=== PATIENT | male | born 1945 | race Two or more races ===

== ENCOUNTER 2021-12-09 18:20 | Inpatient (IN) | payer OTHER, MEDICAID ==
[~2021-12-09] VITALS: Ht 177.8 cm; Wt 99.5 kg
[2021-12-09] MEDS ORDERED: methylPREDNISolone SOD SUCC 125 MG/2 ML VL IV ONE (19:00)
[2021-12-09 19:10] VITALS: BP 102/64
[2021-12-09 22:40] VITALS: BP 109/70
[2021-12-10 01:08] LABS: Hematocrit 43.3 % (41.0-53.0); Hemoglobin 14.5 g/dL (13.5-17.5); Mean Corpuscular Hemoglobin 28.4 pg (28.0-32.0); Mean Corpuscular Hgb Conc. 33.4 g/dL (32.0-36.0); Red Cell Distribution Width 16.4 % (11.8-14.3); White Blood Cell 9.6 10^3/uL (4.4-10.8)
[2021-12-10 01:12] LABS: Basophils % (manual) 0 (0.0-2.0); Blast Cells 0; Eosinophils % (manual) 0 (0-7); Metamyelocytes % 0; Monocytes % (manual) 0 (0-12); Myelocytes % 0; Promyelocytes % 0; Reactive Lymphocytes 0
[2021-12-10 02:00] VITALS: BP 127/73
[2021-12-10 02:06] LABS: Band Neutrophils % (manual) 7; Lymphocytes % (manual) 1 (10.0-50.0)
[2021-12-10] MEDS ORDERED: cefTRIAXone 1GM/50ML D5W 50 ML IV ONE (02:15)
[2021-12-10] MEDS ORDERED: AZITHROMYCIN 500MG/ 250ML 250 ML IV ONE (02:15)
[2021-12-10 06:32] LABS: Calcium 8.1 mg/dL (8.5-10.1); Magnesium 3.2 mg/dL (1.6-2.6); Potassium 4.6 mmol/L (3.5-5.1)
[2021-12-10 06:41] LABS: BUN/Creatinine Ratio 24.8; Bilirubin, Total 0.8 mg/dL (0.2-1.0); CRP High Sensitivity 14.8 mg/dL (< 0.3); Total Protein 6.7 g/dL (6.4-8.2)
[2021-12-10 07:40] VITALS: BP 117/63
[2021-12-10] MEDS ORDERED: REMDESIVIR PER PHARMACY 0 ML IV SCH (09:00)
[2021-12-10] MEDS ORDERED: NITROGLYCERIN 0.4 MG SL TAB SL PRN (09:00)
[2021-12-10] MEDS ORDERED: ALBUTEROL SULF HFA 90MCG INH 200DOSE IN PRN (09:00)
[2021-12-10] MEDS ORDERED: MORPHINE SULFATE INJECTION 2 MG/ML SYRG IV PRN (09:00)
[2021-12-10] MEDS ORDERED: ACETAMINOPHEN 500 MG TAB PO PRN (09:00)
[2021-12-10] MEDS ORDERED: FUROSEMIDE 40 MG/4 ML VIAL IV ONE (09:00)
[2021-12-10 09:06] LABS: Urine WBC None Seen /hpf (0 - 3)
[2021-12-10] MEDS: ZINC SULFATE 220mg CAP or TAB PO SCH (10:00)
[2021-12-10] MEDS: IVERMECTIN 3 MG TAB PO SCH (10:00)
[2021-12-10] MEDS: CHOLECALCIFEROL (VITD3) 2,000 UNIT CAP/TAB PO SCH (10:00)
[2021-12-10] MEDS ORDERED: ENOXAPARIN SOD 40 MG/0.4 ML SYRINGE SC SCH (10:00)
[2021-12-10] MEDS: ASCORBIC ACID 1,000 MG TAB PO SCH (10:00)
[2021-12-10] MEDS: DexAMETHasone SOD PHOS 10MG/1ML VIAL INJ IV SCH (10:06)
[2021-12-10 10:35] VITALS: BP 114/67
[2021-12-10] MEDS: BUDESONIDE (INHALATION) 180 MCG IH IN SCH ×2 (10:52→22:00)
[2021-12-10 11:06] LABS: Urine Bacteria NONE SEEN /hpf (None Seen); Urine Blood 3+ /uL (Negative); Urine Specific Gravity 1.021 (1.001-1.035)
[2021-12-10] MEDS: levoFLOXacin 750MG 150 ML IV SCH (11:43)
[2021-12-10 13:41] VITALS: BP 118/71
[2021-12-10] MEDS: SODIUM CHLOR 0.9% PF (SALINE LOCK) 10ML VIAL/SYR IV SCH ×2 (14:30→22:42)
[2021-12-10] MEDS ORDERED: REMDESIVIR 200 MG in NS 210ml LOADING DOSE ADULT IV ONE (15:00)
[2021-12-10 18:05] VITALS: BP 105/64
[2021-12-10 21:02] LABS: Cholesterol 167 mg/dL (< 200)
[2021-12-10 21:04] LABS: Folate (Folic Acid) 2.34 ng/mL (5.38-24)
[2021-12-10 21:05] LABS: HDL Cholesterol 30 mg/dL (40-59); LDL Cholesterol 106 mg/dL (< 100); Triglycerides 174 mg/dL (< 150)
[2021-12-10 22:20] VITALS: BP 111/60
[2021-12-10] MEDS: ENOXAPARIN SOD 100 MG/1 ML SYRINGE SC SCH (22:57)
[2021-12-11 01:45] VITALS: BP 122/69
[2021-12-11] MEDS: SODIUM CHLOR 0.9% PF (SALINE LOCK) 10ML VIAL/SYR IV SCH ×3 (06:13→22:10)
[2021-12-11 06:15] VITALS: BP 129/67
[2021-12-11 09:17] LABS: Albumin 2.1 g/dL (3.4-5.0); Calcium 8.9 mg/dL (8.5-10.1); Potassium 4.3 mmol/L (3.5-5.1)
[2021-12-11 09:20] LABS: BUN/Creatinine Ratio 37.7
[2021-12-11 09:54] LABS: Bilirubin, Total 0.4 mg/dL (0.2-1.0); Total Protein 6.7 g/dL (6.4-8.2)
[2021-12-11] MEDS: ASCORBIC ACID 1,000 MG TAB PO SCH (10:00)
[2021-12-11] MEDS: FOLIC ACID 1 MG in D5W 5% 50 ML INJ SCH (10:00)
[2021-12-11] MEDS: IVERMECTIN 3 MG TAB PO SCH (10:00)
[2021-12-11] MEDS: ENOXAPARIN SOD 100 MG/1 ML SYRINGE SC SCH ×2 (10:00→22:27)
[2021-12-11] MEDS: DexAMETHasone SOD PHOS 10MG/1ML VIAL INJ IV SCH (10:00)
[2021-12-11] MEDS: ZINC SULFATE 220mg CAP or TAB PO SCH (10:00)
[2021-12-11] MEDS: levoFLOXacin 750MG 150 ML IV SCH (10:00)
[2021-12-11] MEDS: CHOLECALCIFEROL (VITD3) 2,000 UNIT CAP/TAB PO SCH (10:00)
[2021-12-11] MEDS: BUDESONIDE (INHALATION) 180 MCG IH IN SCH ×2 (10:20→22:00)
[2021-12-11] MEDS: REMDESIVIR 100mg 100 MG in SODIUM CHL 0.9% 230 ML IV SCH (15:13)
[2021-12-12] MEDS: SODIUM CHLOR 0.9% PF (SALINE LOCK) 10ML VIAL/SYR IV SCH ×3 (06:04→22:00)
[2021-12-12 08:30] LABS: Chloride 120 mmol/L (98-107); Potassium 4.1 mmol/L (3.5-5.1); Sodium 152 mmol/L (136-145)
[2021-12-12 09:11] LABS: Alanine Aminotransferase 32 U/L (16-61); Albumin 2.1 g/dL (3.4-5.0); Alkaline Phosphatase 72 U/L (45-117); Anion Gap 9 (5-15); Aspartate Aminotransferase 32 U/L (15-37); BUN/Creatinine Ratio 40.4; Bilirubin, Total 0.8 mg/dL (0.2-1.0); Blood Urea Nitrogen 42 mg/dL (7-18); Calcium 8.5 mg/dL (8.5-10.1); Carbon Dioxide 23 mmol/L (21-32); GFR African American 90 mL/min; GFR Non-African American 74 mL/min; Glucose 87 mg/dL (74-106); Total Protein 7.1 g/dL (6.4-8.2)
[2021-12-12] MEDS: FOLIC ACID 1 MG in D5W 5% 50 ML INJ SCH (12:03)
[2021-12-12] MEDS: DexAMETHasone SOD PHOS 10MG/1ML VIAL INJ IV SCH (12:04)
[2021-12-12] MEDS: levoFLOXacin 750MG 150 ML IV SCH (12:04)
[2021-12-12] MEDS: IVERMECTIN 3 MG TAB PO SCH (12:05)
[2021-12-12] MEDS: ZINC SULFATE 220mg CAP or TAB PO SCH (12:05)
[2021-12-12] MEDS: ASCORBIC ACID 1,000 MG TAB PO SCH (12:06)
[2021-12-12] MEDS: ENOXAPARIN SOD 100 MG/1 ML SYRINGE SC SCH ×2 (12:06→22:00)
[2021-12-12] MEDS: CHOLECALCIFEROL (VITD3) 2,000 UNIT CAP/TAB PO SCH (12:06)
[2021-12-12] MEDS: REMDESIVIR 100mg 100 MG in SODIUM CHL 0.9% 230 ML IV SCH (16:17)
[2021-12-12 20:55] VITALS: BP 123/70
[2021-12-12 22:00] VITALS: BP 123/70
[2021-12-13 05:00] VITALS: BP 122/80
[2021-12-13 07:32] LABS: Potassium 4.3 mmol/L (3.5-5.1)
[2021-12-13 07:42] LABS: Albumin 2.2 g/dL (3.4-5.0); BUN/Creatinine Ratio 37.1; Bilirubin, Total 1.1 mg/dL (0.2-1.0); Calcium 8.6 mg/dL (8.5-10.1); Total Protein 7.2 g/dL (6.4-8.2)
[2021-12-13] MEDS: levoFLOXacin 750MG 150 ML IV SCH (08:52)
[2021-12-13] MEDS: ENOXAPARIN SOD 100 MG/1 ML SYRINGE SC SCH ×2 (08:59→21:55)
[2021-12-13 09:00] VITALS: BP 120/74
[2021-12-13] MEDS: IVERMECTIN 3 MG TAB PO SCH (09:00)
[2021-12-13] MEDS: CHOLECALCIFEROL (VITD3) 2,000 UNIT CAP/TAB PO SCH (09:00)
[2021-12-13] MEDS: ASCORBIC ACID 1,000 MG TAB PO SCH (09:00)
[2021-12-13] MEDS: DexAMETHasone SOD PHOS 10MG/1ML VIAL INJ IV SCH (09:00)
[2021-12-13] MEDS: ZINC SULFATE 220mg CAP or TAB PO SCH (09:01)
[2021-12-13] MEDS: FOLIC ACID 1 MG in D5W 5% 50 ML INJ SCH (10:00)
[2021-12-13 13:00] VITALS: BP 104/65
[2021-12-13] MEDS ORDERED: PPN PER PHARMACY 0 ML IV SCH (13:30)
[2021-12-13 13:58] LABS: Magnesium 3.1 mg/dL (1.6-2.6); Phosphorus 3.4 mg/dL (2.5-4.90)
[2021-12-13] MEDS: SODIUM CHLOR 0.9% PF (SALINE LOCK) 10ML VIAL/SYR IV SCH ×2 (14:00→21:55)
[2021-12-13 14:02] LABS: Pre Albumin 18.7 mg/dL (20.0-40.0)
[2021-12-13] MEDS: REMDESIVIR 100mg 100 MG in SODIUM CHL 0.9% 230 ML IV SCH (15:49)
[2021-12-13 16:42] VITALS: BP 107/73
[2021-12-13] MEDS ORDERED: AMINO ACID INFUSION IN D10W 1,000 ML IV NR (20:00)
[2021-12-13 22:00] VITALS: BP 111/84
[2021-12-14] MEDS ORDERED: DEXTROSE (50%) 50ML SYRG IV SCH
[2021-12-14] MEDS: ACCU-CHEK COMFORT CURVE STRIP VI SCH ×5 (00:06→23:56)
[2021-12-14 05:00] VITALS: BP 113/75
[2021-12-14] MEDS: SODIUM CHLOR 0.9% PF (SALINE LOCK) 10ML VIAL/SYR IV SCH ×3 (05:15→21:52)
[2021-12-14] MEDS: InsuLIN REG 1unit/0.01ml Soln (100units/ml) SC SCH ×5 (05:18→23:56)
[2021-12-14 09:00] VITALS: BP 117/84
[2021-12-14] MEDS: FOLIC ACID 1 MG in D5W 5% 50 ML INJ SCH (09:17)
[2021-12-14] MEDS: levoFLOXacin 750MG 150 ML IV SCH (09:18)
[2021-12-14] MEDS: DexAMETHasone SOD PHOS 10MG/1ML VIAL INJ IV SCH (09:18)
[2021-12-14] MEDS: ENOXAPARIN SOD 100 MG/1 ML SYRINGE SC SCH ×2 (09:19→21:53)
[2021-12-14] MEDS: ASCORBIC ACID 1,000 MG TAB PO SCH (09:19)
[2021-12-14] MEDS: CHOLECALCIFEROL (VITD3) 2,000 UNIT CAP/TAB PO SCH (09:19)
[2021-12-14] MEDS: IVERMECTIN 3 MG TAB PO SCH (09:19)
[2021-12-14] MEDS: ZINC SULFATE 220mg CAP or TAB PO SCH (09:20)
[2021-12-14 10:36] LABS: Potassium 4.2 mmol/L (3.5-5.1)
[2021-12-14 10:48] LABS: Albumin 2.4 g/dL (3.4-5.0); Bilirubin, Total 1.2 mg/dL (0.2-1.0); Calcium 8.4 mg/dL (8.5-10.1); Phosphorus 2.9 mg/dL (2.5-4.90); Total Protein 6.5 g/dL (6.4-8.2)
[2021-12-14 11:06] LABS: Magnesium 4.3 mg/dL (1.6-2.6)
[2021-12-14 13:00] VITALS: BP 121/74
[2021-12-14] MEDS: REMDESIVIR 100mg 100 MG in SODIUM CHL 0.9% 230 ML IV SCH (15:21)
[2021-12-14 17:00] VITALS: BP 124/56
[2021-12-14] MEDS ORDERED: PPN PER PHARMACY IV NR ×6 (20:00)
[2021-12-14 22:09] VITALS: BP 119/72
[2021-12-15] MEDS: ACCU-CHEK COMFORT CURVE STRIP VI SCH ×4 (05:26→23:05)
[2021-12-15] MEDS: InsuLIN REG 1unit/0.01ml Soln (100units/ml) SC SCH ×5 (05:26→23:04)
[2021-12-15] MEDS: SODIUM CHLOR 0.9% PF (SALINE LOCK) 10ML VIAL/SYR IV SCH ×3 (05:26→22:00)
[2021-12-15 05:29] VITALS: BP 114/64
[2021-12-15 07:34] LABS: Basophils # (auto) 0 10 ^3/uL (0-0.2); Basophils % (auto) 0.3 % (0.0-2.0); Eosinophils # (auto) 0.1 10 ^3/uL (0-0.8); Eosinophils % (auto) 1.1 % (0.0-7.0); Hematocrit 45.8 % (41.0-53.0); Hemoglobin 14.9 g/dL (13.5-17.5); Lymphocytes # (auto) 0.7 10 ^3/uL (0.4-5.4); Lymphocytes % (auto) 7.8 % (10.0-50.0); Mean Corpuscular Hemoglobin 27.8 pg (28.0-32.0); Mean Corpuscular Hgb Conc. 32.4 g/dL (32.0-36.0); Mean Corpuscular Volume 85.7 fL (80.0-100.0); Monocytes # (auto) 0.3 10 ^3/uL (0-1.3); Monocytes % (auto) 3.3 % (0.0-12.0); Neutrophils # (auto) 8.3 10 ^3/uL (1.6-8.6); Neutrophils % (auto) 87.5 % (37.0-80.0); Nucleated Red Blood Cells % 0.2 %; Red Blood Cells 5.34 10^6/uL (4.5-5.90); Red Cell Distribution Width 16.3 % (11.8-14.3); White Blood Cell 9.4 10^3/uL (4.4-10.8)
[2021-12-15 07:50] LABS: INR 1.27 (0.9-1.15); Partial Thromboplastin Time 29.7 sec (23.6-33.0)
[2021-12-15] MEDS: DexAMETHasone SOD PHOS 10MG/1ML VIAL INJ IV SCH (09:40)
[2021-12-15] MEDS: levoFLOXacin 750MG 150 ML IV SCH (09:47)
[2021-12-15] MEDS: CHOLECALCIFEROL (VITD3) 2,000 UNIT CAP/TAB PO SCH (10:00)
[2021-12-15] MEDS: ZINC SULFATE 220mg CAP or TAB PO SCH (10:00)
[2021-12-15] MEDS: ASCORBIC ACID 1,000 MG TAB PO SCH (10:00)
[2021-12-15] MEDS: ENOXAPARIN SOD 100 MG/1 ML SYRINGE SC SCH ×2 (12:07→23:04)
[2021-12-15 12:46] LABS: Albumin 2.3 g/dL (3.4-5.0); Calcium 8.6 mg/dL (8.5-10.1); Potassium 4.1 mmol/L (3.5-5.1)
[2021-12-15 13:00] VITALS: BP 132/79
[2021-12-15 13:29] LABS: BUN/Creatinine Ratio 38.5; CRP High Sensitivity 5.45 mg/dL (< 0.3); Phosphorus 2.9 mg/dL (2.5-4.90); Total Protein 6.3 g/dL (6.4-8.2)
[2021-12-15] MEDS ORDERED: HALOPERIDOL LACTATE 5 MG/ML INJ VIAL IM PRN (16:00)
[2021-12-15 16:50] VITALS: BP 139/81
[2021-12-15] MEDS: FOLIC ACID 1 MG in D5W 5% 50 ML INJ SCH (16:55)
[2021-12-15] MEDS: D5W 5% 1,000 ML IV SCH (18:28)
[2021-12-15] MEDS ORDERED: TPN PER PHARMACY IV NR ×5 (20:00)
[2021-12-15 22:00] VITALS: BP 100/69
[2021-12-16 05:00] VITALS: BP 104/68
[2021-12-16] MEDS: InsuLIN REG 1unit/0.01ml Soln (100units/ml) SC SCH ×4 (05:32→23:19)
[2021-12-16] MEDS: SODIUM CHLOR 0.9% PF (SALINE LOCK) 10ML VIAL/SYR IV SCH ×3 (05:32→21:48)
[2021-12-16] MEDS: ACCU-CHEK COMFORT CURVE STRIP VI SCH ×4 (05:32→23:19)
[2021-12-16] MEDS: D5W 5% 1,000 ML IV SCH ×2 (06:24→19:39)
[2021-12-16] MEDS: levoFLOXacin 750MG 150 ML IV SCH (08:00)
[2021-12-16] MEDS: DexAMETHasone SOD PHOS 10MG/1ML VIAL INJ IV SCH (08:00)
[2021-12-16] MEDS: ENOXAPARIN SOD 100 MG/1 ML SYRINGE SC SCH ×2 (08:00→21:48)
[2021-12-16 08:04] LABS: Basophils # (auto) 0 10 ^3/uL (0-0.2); Basophils % (auto) 0.2 % (0.0-2.0); Eosinophils # (auto) 0.1 10 ^3/uL (0-0.8); Eosinophils % (auto) 1.3 % (0.0-7.0); Hematocrit 43.5 % (41.0-53.0); Hemoglobin 14.3 g/dL (13.5-17.5); Lymphocytes # (auto) 0.9 10 ^3/uL (0.4-5.4); Lymphocytes % (auto) 8.9 % (10.0-50.0); Mean Corpuscular Hemoglobin 28.1 pg (28.0-32.0); Mean Corpuscular Hgb Conc. 32.8 g/dL (32.0-36.0); Mean Corpuscular Volume 85.7 fL (80.0-100.0); Monocytes # (auto) 0.3 10 ^3/uL (0-1.3); Monocytes % (auto) 3.3 % (0.0-12.0); Neutrophils # (auto) 8.8 10 ^3/uL (1.6-8.6); Neutrophils % (auto) 86.3 % (37.0-80.0); Nucleated Red Blood Cells % 0.1 %; Potassium 3.8 mmol/L (3.5-5.1); Red Blood Cells 5.07 10^6/uL (4.5-5.90); Red Cell Distribution Width 15.8 % (11.8-14.3); White Blood Cell 10.2 10^3/uL (4.4-10.8)
[2021-12-16] MEDS: FOLIC ACID 1 MG in D5W 5% 50 ML INJ SCH (08:05)
[2021-12-16] MEDS: ZINC SULFATE 220mg CAP or TAB PO SCH (08:06)
[2021-12-16] MEDS: CHOLECALCIFEROL (VITD3) 2,000 UNIT CAP/TAB PO SCH (08:06)
[2021-12-16] MEDS: ASCORBIC ACID 1,000 MG TAB PO SCH (08:06)
[2021-12-16 08:16] LABS: Albumin 2.3 g/dL (3.4-5.0); BUN/Creatinine Ratio 44.1; Bilirubin, Total 1.1 mg/dL (0.2-1.0); Calcium 8.1 mg/dL (8.5-10.1); Phosphorus 2.8 mg/dL (2.5-4.90)
[2021-12-16 08:28] LABS: INR 1.32 (0.9-1.15)
[2021-12-16 08:40] VITALS: BP 119/75
[2021-12-16 17:00] VITALS: BP 129/87
[2021-12-16] MEDS ORDERED: PPN PER PHARMACY IV NR ×8 (20:00)
[2021-12-16 22:00] VITALS: BP 110/73
[2021-12-17 05:00] VITALS: BP 121/85
[2021-12-17] MEDS: SODIUM CHLOR 0.9% PF (SALINE LOCK) 10ML VIAL/SYR IV SCH ×3 (05:29→21:20)
[2021-12-17] MEDS: InsuLIN REG 1unit/0.01ml Soln (100units/ml) SC SCH ×4 (05:29→23:01)
[2021-12-17] MEDS: ACCU-CHEK COMFORT CURVE STRIP VI SCH ×4 (05:29→23:05)
[2021-12-17 06:48] LABS: Albumin 2.1 g/dL (3.4-5.0); Calcium 7.9 mg/dL (8.5-10.1); Magnesium 3.4 mg/dL (1.6-2.6); Potassium 3.7 mmol/L (3.5-5.1)
[2021-12-17 06:52] LABS: BUN/Creatinine Ratio 47.5; Bilirubin, Total 1.2 mg/dL (0.2-1.0); Phosphorus 2.9 mg/dL (2.5-4.90); Total Protein 5.5 g/dL (6.4-8.2)
[2021-12-17 08:39] VITALS: BP 102/59
[2021-12-17] MEDS: ASCORBIC ACID 1,000 MG TAB PO SCH (10:00)
[2021-12-17] MEDS: CHOLECALCIFEROL (VITD3) 2,000 UNIT CAP/TAB PO SCH (10:00)
[2021-12-17] MEDS: ZINC SULFATE 220mg CAP or TAB PO SCH (10:00)
[2021-12-17] MEDS: FOLIC ACID 1 MG in D5W 5% 50 ML INJ SCH (10:11)
[2021-12-17] MEDS: levoFLOXacin 750MG 150 ML IV SCH (10:11)
[2021-12-17] MEDS: DexAMETHasone SOD PHOS 10MG/1ML VIAL INJ IV SCH (10:11)
[2021-12-17] MEDS: ENOXAPARIN SOD 100 MG/1 ML SYRINGE SC SCH ×2 (10:11→21:19)
[2021-12-17 12:40] VITALS: BP 104/46
[2021-12-17] MEDS: D5W 5% 1,000 ML IV SCH ×2 (16:30→23:06)
[2021-12-17 16:58] VITALS: BP 92/52
[2021-12-17] MEDS ORDERED: PPN PER PHARMACY IV NR ×7 (20:00)
[2021-12-17 21:06] VITALS: BP 113/72
[2021-12-18 04:23] VITALS: BP 106/62
[2021-12-18] MEDS: SODIUM CHLOR 0.9% PF (SALINE LOCK) 10ML VIAL/SYR IV SCH ×3 (05:19→22:21)
[2021-12-18] MEDS: ACCU-CHEK COMFORT CURVE STRIP VI SCH ×3 (05:20→18:35)
[2021-12-18] MEDS: InsuLIN REG 1unit/0.01ml Soln (100units/ml) SC SCH ×3 (05:20→18:46)
[2021-12-18 09:00] VITALS: BP 102/59
[2021-12-18] MEDS: ASCORBIC ACID 1,000 MG TAB PO SCH (10:00)
[2021-12-18] MEDS: CHOLECALCIFEROL (VITD3) 2,000 UNIT CAP/TAB PO SCH (10:00)
[2021-12-18] MEDS: ZINC SULFATE 220mg CAP or TAB PO SCH (10:00)
[2021-12-18 11:29] LABS: Albumin 1.9 g/dL (3.4-5.0); Calcium 8.3 mg/dL (8.5-10.1); Magnesium 2.7 mg/dL (1.6-2.6); Potassium 4.2 mmol/L (3.5-5.1)
[2021-12-18] MEDS: FOLIC ACID 1 MG in D5W 5% 50 ML INJ SCH (11:30)
[2021-12-18] MEDS: DexAMETHasone SOD PHOS 10MG/1ML VIAL INJ IV SCH (11:30)
[2021-12-18] MEDS: ENOXAPARIN SOD 100 MG/1 ML SYRINGE SC SCH ×2 (11:31→22:20)
[2021-12-18] MEDS: levoFLOXacin 750MG 150 ML IV SCH (11:31)
[2021-12-18 11:46] LABS: Bilirubin, Total 1.2 mg/dL (0.2-1.0); Phosphorus 2.2 mg/dL (2.5-4.90)
[2021-12-18] MEDS: D5W 5% 1,000 ML IV SCH (11:55)
[2021-12-18 13:00] VITALS: BP 105/52
[2021-12-18 17:00] VITALS: BP 103/63
[2021-12-18] MEDS ORDERED: PPN PER PHARMACY IV NR ×6 (20:00)
[2021-12-18 21:36] VITALS: BP 90/70
[2021-12-19] MEDS: ACCU-CHEK COMFORT CURVE STRIP VI SCH ×4 (00:09→17:31)
[2021-12-19] MEDS: D5W 5% 1,000 ML IV SCH ×2 (01:15→14:10)
[2021-12-19 04:43] VITALS: BP 97/77
[2021-12-19] MEDS: InsuLIN REG 1unit/0.01ml Soln (100units/ml) SC SCH ×4 (06:00→18:00)
[2021-12-19] MEDS: SODIUM CHLOR 0.9% PF (SALINE LOCK) 10ML VIAL/SYR IV SCH ×3 (06:18→21:50)
[2021-12-19 07:54] LABS: Potassium 3.6 mmol/L (3.5-5.1)
[2021-12-19 08:01] LABS: BUN/Creatinine Ratio 47.9; Bilirubin, Total 0.8 mg/dL (0.2-1.0); Magnesium 3.1 mg/dL (1.6-2.6); Phosphorus 1.8 mg/dL (2.5-4.90); Total Protein 5.7 g/dL (6.4-8.2)
[2021-12-19 08:03] LABS: Pre Albumin 20.4 mg/dL (20.0-40.0)
[2021-12-19 08:30] VITALS: BP 107/71
[2021-12-19] MEDS ORDERED: POTASSIUM PHOSPHATE 26.4 MEQ in SODIUM CHL 0.9% 100 ML IV ONE (09:00)
[2021-12-19] MEDS: FOLIC ACID 1 MG in D5W 5% 50 ML INJ SCH (10:49)
[2021-12-19] MEDS: DexAMETHasone SOD PHOS 10MG/1ML VIAL INJ IV SCH (10:50)
[2021-12-19] MEDS: levoFLOXacin 750MG 150 ML IV SCH (10:51)
[2021-12-19] MEDS: ASCORBIC ACID 1,000 MG TAB PO SCH (10:51)
[2021-12-19] MEDS: ZINC SULFATE 220mg CAP or TAB PO SCH (10:51)
[2021-12-19] MEDS: ENOXAPARIN SOD 100 MG/1 ML SYRINGE SC SCH ×2 (10:52→21:50)
[2021-12-19] MEDS: CHOLECALCIFEROL (VITD3) 2,000 UNIT CAP/TAB PO SCH (10:52)
[2021-12-19 13:10] VITALS: BP 95/57
[2021-12-19 17:16] VITALS: BP 82/60
[2021-12-19 17:56] VITALS: BP 105/63
[2021-12-19] MEDS ORDERED: PPN PER PHARMACY IV NR ×5 (20:00)
[2021-12-19 22:25] VITALS: BP 90/60
[2021-12-20] MEDS: ACCU-CHEK COMFORT CURVE STRIP VI SCH ×4 (00:54→17:57)
[2021-12-20 04:42] VITALS: BP 88/59
[2021-12-20] MEDS: SODIUM CHLOR 0.9% PF (SALINE LOCK) 10ML VIAL/SYR IV SCH ×3 (05:06→22:15)
[2021-12-20] MEDS: D5W 5% 1,000 ML IV SCH ×2 (05:06→09:30)
[2021-12-20] MEDS: InsuLIN REG 1unit/0.01ml Soln (100units/ml) SC SCH ×4 (06:00→17:57)
[2021-12-20 06:34] LABS: Albumin 1.8 g/dL (3.4-5.0); Calcium 7.7 mg/dL (8.5-10.1); Magnesium 2.8 mg/dL (1.6-2.6); Potassium 4.3 mmol/L (3.5-5.1)
[2021-12-20 06:38] LABS: BUN/Creatinine Ratio 45.3; Bilirubin, Total 0.5 mg/dL (0.2-1.0); Phosphorus 2.8 mg/dL (2.5-4.90); Total Protein 5.3 g/dL (6.4-8.2)
[2021-12-20 09:00] VITALS: BP 119/66
[2021-12-20] MEDS: levoFLOXacin 750MG 150 ML IV SCH (09:22)
[2021-12-20] MEDS: DexAMETHasone SOD PHOS 10MG/1ML VIAL INJ IV SCH (09:22)
[2021-12-20] MEDS: CHOLECALCIFEROL (VITD3) 2,000 UNIT CAP/TAB PO SCH (09:23)
[2021-12-20] MEDS: ZINC SULFATE 220mg CAP or TAB PO SCH (09:23)
[2021-12-20] MEDS: ASCORBIC ACID 1,000 MG TAB PO SCH (09:23)
[2021-12-20] MEDS: ENOXAPARIN SOD 100 MG/1 ML SYRINGE SC SCH ×2 (11:00→22:15)
[2021-12-20] MEDS: FOLIC ACID 1 MG in D5W 5% 50 ML INJ SCH (11:00)
[2021-12-20 13:00] VITALS: BP 124/63
[2021-12-20 17:00] VITALS: BP 107/67
[2021-12-20] MEDS ORDERED: PPN PER PHARMACY IV NR ×7 (20:00)
[2021-12-20 22:00] VITALS: BP 115/66
[2021-12-21] MEDS: ACCU-CHEK COMFORT CURVE STRIP VI SCH ×4 (00:57→18:44)
[2021-12-21 05:00] VITALS: BP 114/56
[2021-12-21] MEDS: SODIUM CHLOR 0.9% PF (SALINE LOCK) 10ML VIAL/SYR IV SCH ×3 (05:54→21:08)
[2021-12-21] MEDS: InsuLIN REG 1unit/0.01ml Soln (100units/ml) SC SCH ×4 (05:54→18:00)
[2021-12-21 05:55] LABS: Potassium 4.2 mmol/L (3.5-5.1)
[2021-12-21] MEDS: D5W 5% 1,000 ML IV SCH ×2 (06:01→21:10)
[2021-12-21 06:04] LABS: Albumin 1.8 g/dL (3.4-5.0); BUN/Creatinine Ratio 37.8; Bilirubin, Total 0.6 mg/dL (0.2-1.0); Calcium 7.9 mg/dL (8.5-10.1); Magnesium 3.2 mg/dL (1.6-2.6); Phosphorus 2.5 mg/dL (2.5-4.90); Total Protein 5.5 g/dL (6.4-8.2)
[2021-12-21 09:00] VITALS: BP 120/68
[2021-12-21] MEDS: FOLIC ACID 1 MG in D5W 5% 50 ML INJ SCH (09:00)
[2021-12-21] MEDS: DexAMETHasone SOD PHOS 10MG/1ML VIAL INJ IV SCH (09:01)
[2021-12-21] MEDS: ASCORBIC ACID 1,000 MG TAB PO SCH (09:01)
[2021-12-21] MEDS: ZINC SULFATE 220mg CAP or TAB PO SCH (09:01)
[2021-12-21] MEDS: CHOLECALCIFEROL (VITD3) 2,000 UNIT CAP/TAB PO SCH (09:02)
[2021-12-21] MEDS: ENOXAPARIN SOD 100 MG/1 ML SYRINGE SC SCH ×2 (10:00→21:09)
[2021-12-21] MEDS: levoFLOXacin 750MG 150 ML IV SCH (12:35)
[2021-12-21 13:00] VITALS: BP 105/56
[2021-12-21 13:53] LABS: Basophils # (auto) 0.2 10 ^3/uL (0-0.2); Eosinophils # (auto) 0.1 10 ^3/uL (0-0.8); Hematocrit 32.8 % (41.0-53.0); Hemoglobin 10.7 g/dL (13.5-17.5); Lymphocytes # (auto) 0.8 10 ^3/uL (0.4-5.4); Lymphocytes % (auto) 9.4 % (10.0-50.0); Mean Corpuscular Hemoglobin 28.3 pg (28.0-32.0); Mean Corpuscular Hgb Conc. 32.6 g/dL (32.0-36.0); Mean Corpuscular Volume 86.9 fL (80.0-100.0); Monocytes # (auto) 0.5 10 ^3/uL (0-1.3); Monocytes % (auto) 5.4 % (0.0-12.0); Neutrophils # (auto) 7.1 10 ^3/uL (1.6-8.6); Neutrophils % (auto) 82.2 % (37.0-80.0); Nucleated Red Blood Cells % 0.2 %; Red Blood Cells 3.78 10^6/uL (4.5-5.90); Red Cell Distribution Width 15.8 % (11.8-14.3); White Blood Cell 8.7 10^3/uL (4.4-10.8)
[2021-12-21 17:00] VITALS: BP 106/66
[2021-12-21] MEDS ORDERED: POTASSIUM PHOSPHATE 44 MEQ in D5W 5% 250 ML IV ONE (18:00)
[2021-12-21] MEDS ORDERED: PPN PER PHARMACY IV NR ×6 (20:00)
[2021-12-21 22:00] VITALS: BP 124/69
[2021-12-22] MEDS: ACCU-CHEK COMFORT CURVE STRIP VI SCH ×3 (00:55→17:46)
[2021-12-22 05:00] VITALS: BP 130/63
[2021-12-22] MEDS: InsuLIN REG 1unit/0.01ml Soln (100units/ml) SC SCH ×3 (06:00→17:47)
[2021-12-22] MEDS: SODIUM CHLOR 0.9% PF (SALINE LOCK) 10ML VIAL/SYR IV SCH ×3 (06:39→22:12)
[2021-12-22] MEDS: D5W 5% 1,000 ML IV SCH (08:18)
[2021-12-22 09:00] VITALS: BP 121/66
[2021-12-22] MEDS: levoFLOXacin 750MG 150 ML IV SCH (10:45)
[2021-12-22] MEDS: DexAMETHasone SOD PHOS 10MG/1ML VIAL INJ IV SCH (10:45)
[2021-12-22] MEDS: ZINC SULFATE 220mg CAP or TAB PO SCH (10:45)
[2021-12-22] MEDS: ASCORBIC ACID 1,000 MG TAB PO SCH (10:46)
[2021-12-22] MEDS: CHOLECALCIFEROL (VITD3) 2,000 UNIT CAP/TAB PO SCH (10:46)
[2021-12-22 13:00] VITALS: BP 105/69
[2021-12-22 13:49] LABS: Albumin 1.9 g/dL (3.4-5.0); Calcium 7.8 mg/dL (8.5-10.1); Potassium 4.2 mmol/L (3.5-5.1)
[2021-12-22 13:52] LABS: BUN/Creatinine Ratio 40.8; Bilirubin, Total 0.5 mg/dL (0.2-1.0); Phosphorus 2.4 mg/dL (2.5-4.90); Total Protein 5.7 g/dL (6.4-8.2)
[2021-12-22] MEDS: FOLIC ACID 1 MG in D5W 5% 50 ML INJ SCH (15:10)
[2021-12-22 17:00] VITALS: BP 98/66
[2021-12-22] MEDS ORDERED: PPN PER PHARMACY IV NR ×6 (20:00)
[2021-12-22 22:00] VITALS: BP 111/50
[2021-12-23] MEDS: ACCU-CHEK COMFORT CURVE STRIP VI SCH ×5 (00:53→23:56)
[2021-12-23] MEDS: D5W 5% 1,000 ML IV SCH ×2 (00:54→11:55)
[2021-12-23 05:00] VITALS: BP 107/63
[2021-12-23] MEDS: SODIUM CHLOR 0.9% PF (SALINE LOCK) 10ML VIAL/SYR IV SCH ×3 (05:01→22:58)
[2021-12-23] MEDS: InsuLIN REG 1unit/0.01ml Soln (100units/ml) SC SCH ×5 (06:00→23:57)
[2021-12-23 09:00] VITALS: BP 105/63
[2021-12-23] MEDS: FOLIC ACID 1 MG in D5W 5% 50 ML INJ SCH (10:00)
[2021-12-23] MEDS: levoFLOXacin 750MG 150 ML IV SCH (10:12)
[2021-12-23] MEDS: ASCORBIC ACID 1,000 MG TAB PO SCH (10:12)
[2021-12-23] MEDS: DexAMETHasone SOD PHOS 10MG/1ML VIAL INJ IV SCH (10:12)
[2021-12-23] MEDS: CHOLECALCIFEROL (VITD3) 2,000 UNIT CAP/TAB PO SCH (10:12)
[2021-12-23] MEDS: ZINC SULFATE 220mg CAP or TAB PO SCH (10:12)
[2021-12-23 12:07] LABS: Albumin 1.9 g/dL (3.4-5.0); Calcium 8.2 mg/dL (8.5-10.1); Magnesium 3.3 mg/dL (1.6-2.6); Potassium 3.9 mmol/L (3.5-5.1)
[2021-12-23 12:19] LABS: BUN/Creatinine Ratio 43.5; Bilirubin, Total 0.7 mg/dL (0.2-1.0); Phosphorus 2.6 mg/dL (2.5-4.90); Total Protein 5.5 g/dL (6.4-8.2)
[2021-12-23 12:20] LABS: INR 1.06 (0.9-1.15)
[2021-12-23 13:00] VITALS: BP 86/57
[2021-12-23 17:00] VITALS: BP 94/55
[2021-12-23] MEDS ORDERED: PPN PER PHARMACY IV NR ×8 (20:00)
[2021-12-23 20:05] LABS: Basophils # (auto) 0 10 ^3/uL (0-0.2); Basophils % (auto) 0.1 % (0.0-2.0); Eosinophils # (auto) 0 10 ^3/uL (0-0.8); Hematocrit 30.7 % (41.0-53.0); Hemoglobin 10.4 g/dL (13.5-17.5); Lymphocytes # (auto) 0.4 10 ^3/uL (0.4-5.4); Lymphocytes % (auto) 5.8 % (10.0-50.0); Mean Corpuscular Hemoglobin 28.7 pg (28.0-32.0); Mean Corpuscular Hgb Conc. 34.1 g/dL (32.0-36.0); Mean Corpuscular Volume 84.3 fL (80.0-100.0); Monocytes # (auto) 0.2 10 ^3/uL (0-1.3); Monocytes % (auto) 2.2 % (0.0-12.0); Neutrophils % (auto) 91.9 % (37.0-80.0); Nucleated Red Blood Cells % 0.1 %; Red Blood Cells 3.64 10^6/uL (4.5-5.90); Red Cell Distribution Width 15.8 % (11.8-14.3); White Blood Cell 7.6 10^3/uL (4.4-10.8)
[2021-12-23 22:00] VITALS: BP 96/56
[2021-12-24] MEDS: D5W 5% 1,000 ML IV SCH ×2 (01:19→14:35)
[2021-12-24 05:00] VITALS: BP 120/66
[2021-12-24] MEDS: SODIUM CHLOR 0.9% PF (SALINE LOCK) 10ML VIAL/SYR IV SCH ×3 (05:59→22:27)
[2021-12-24] MEDS: InsuLIN REG 1unit/0.01ml Soln (100units/ml) SC SCH ×4 (06:00→23:44)
[2021-12-24] MEDS: ACCU-CHEK COMFORT CURVE STRIP VI SCH ×4 (06:00→23:41)
[2021-12-24 06:52] LABS: Calcium 7.9 mg/dL (8.5-10.1); Magnesium 3.4 mg/dL (1.6-2.6); Potassium 3.9 mmol/L (3.5-5.1)
[2021-12-24 06:57] LABS: BUN/Creatinine Ratio 48.5; Bilirubin, Total 0.6 mg/dL (0.2-1.0); Phosphorus 2.7 mg/dL (2.5-4.90); Total Protein 5.2 g/dL (6.4-8.2)
[2021-12-24 09:00] VITALS: BP_SYST 105; BP_SYST 93; BP_DIAS 57; BP_DIAS 69
[2021-12-24] MEDS: FOLIC ACID 1 MG in D5W 5% 50 ML INJ SCH (09:30)
[2021-12-24] MEDS: ASCORBIC ACID 1,000 MG TAB PO SCH (10:00)
[2021-12-24] MEDS: CHOLECALCIFEROL (VITD3) 2,000 UNIT CAP/TAB PO SCH (10:00)
[2021-12-24] MEDS: levoFLOXacin 750MG 150 ML IV SCH (10:00)
[2021-12-24] MEDS: DexAMETHasone SOD PHOS 10MG/1ML VIAL INJ IV SCH (10:41)
[2021-12-24] MEDS: ZINC SULFATE 220mg CAP or TAB PO SCH (10:42)
[2021-12-24 13:00] VITALS: BP 121/71
[2021-12-24] MEDS: PANTOPRAZOLE 40 MG/10 ML VIAL INJ IV SCH ×2 (13:30→22:27)
[2021-12-24 17:00] VITALS: BP 113/71
[2021-12-24] MEDS: SUCRALFATE 1 GM/10 ML ORAL SUSP PO SCH ×2 (17:00→22:27)
[2021-12-24] MEDS ORDERED: TPN PER PHARMACY IV NR ×7 (20:00)
[2021-12-24] MEDS ORDERED: PPN PER PHARMACY IV NR ×7 (20:00)
[2021-12-24 21:40] VITALS: BP 126/68
[2021-12-25] MEDS: D5W 5% 1,000 ML IV SCH ×2 (03:55→17:15)
[2021-12-25 04:49] VITALS: BP 112/67
[2021-12-25] MEDS: SODIUM CHLOR 0.9% PF (SALINE LOCK) 10ML VIAL/SYR IV SCH ×3 (05:38→22:25)
[2021-12-25] MEDS: InsuLIN REG 1unit/0.01ml Soln (100units/ml) SC SCH ×4 (05:38→23:47)
[2021-12-25] MEDS: ACCU-CHEK COMFORT CURVE STRIP VI SCH ×4 (05:38→23:46)
[2021-12-25 06:40] LABS: Basophils # (auto) 0.1 10 ^3/uL (0-0.2); Basophils % (auto) 0.7 % (0.0-2.0); Eosinophils # (auto) 0 10 ^3/uL (0-0.8); Eosinophils % (auto) 0.1 % (0.0-7.0); Hemoglobin 10.8 g/dL (13.5-17.5); Lymphocytes # (auto) 0.9 10 ^3/uL (0.4-5.4); Lymphocytes % (auto) 10.1 % (10.0-50.0); Mean Corpuscular Hemoglobin 28.8 pg (28.0-32.0); Mean Corpuscular Hgb Conc. 33.7 g/dL (32.0-36.0); Mean Corpuscular Volume 85.3 fL (80.0-100.0); Monocytes # (auto) 0.4 10 ^3/uL (0-1.3); Monocytes % (auto) 4.2 % (0.0-12.0); Neutrophils # (auto) 7.5 10 ^3/uL (1.6-8.6); Neutrophils % (auto) 84.9 % (37.0-80.0); Nucleated Red Blood Cells % 0.2 %; Red Blood Cells 3.75 10^6/uL (4.5-5.90); Red Cell Distribution Width 16.2 % (11.8-14.3); White Blood Cell 8.8 10^3/uL (4.4-10.8)
[2021-12-25] MEDS: SUCRALFATE 1 GM/10 ML ORAL SUSP PO SCH ×4 (06:51→22:25)
[2021-12-25 07:09] LABS: Potassium 4.4 mmol/L (3.5-5.1)
[2021-12-25 07:21] LABS: Albumin 1.9 g/dL (3.4-5.0); Bilirubin, Total 0.4 mg/dL (0.2-1.0); Calcium 7.9 mg/dL (8.5-10.1); Magnesium 3.4 mg/dL (1.6-2.6); Phosphorus 2.6 mg/dL (2.5-4.90); Total Protein 5.4 g/dL (6.4-8.2)
[2021-12-25 09:00] VITALS: BP 121/70
[2021-12-25] MEDS: FOLIC ACID 1 MG in D5W 5% 50 ML INJ SCH (09:38)
[2021-12-25] MEDS: CHOLECALCIFEROL (VITD3) 2,000 UNIT CAP/TAB PO SCH (09:39)
[2021-12-25] MEDS: DexAMETHasone SOD PHOS 10MG/1ML VIAL INJ IV SCH (09:39)
[2021-12-25] MEDS: ASCORBIC ACID 1,000 MG TAB PO SCH (09:39)
[2021-12-25] MEDS: levoFLOXacin 750MG 150 ML IV SCH (09:39)
[2021-12-25] MEDS: PANTOPRAZOLE 40 MG/10 ML VIAL INJ IV SCH ×2 (09:39→22:25)
[2021-12-25] MEDS: ZINC SULFATE 220mg CAP or TAB PO SCH (09:39)
[2021-12-25 13:00] VITALS: BP 142/69
[2021-12-25 17:00] VITALS: BP 99/63
[2021-12-25] MEDS ORDERED: PPN PER PHARMACY IV NR ×8 (20:00)
[2021-12-25 22:00] VITALS: BP 95/68
[2021-12-26 05:00] VITALS: BP 106/53
[2021-12-26] MEDS: SODIUM CHLOR 0.9% PF (SALINE LOCK) 10ML VIAL/SYR IV SCH ×3 (05:48→21:30)
[2021-12-26] MEDS: ACCU-CHEK COMFORT CURVE STRIP VI SCH ×4 (05:49→23:46)
[2021-12-26] MEDS: InsuLIN REG 1unit/0.01ml Soln (100units/ml) SC SCH ×4 (05:49→23:46)
[2021-12-26] MEDS: D5W 5% 1,000 ML IV SCH ×2 (05:50→19:55)
[2021-12-26] MEDS: SUCRALFATE 1 GM/10 ML ORAL SUSP PO SCH ×5 (06:41→21:52)
[2021-12-26 09:00] VITALS: BP 110/58
[2021-12-26] MEDS: CHOLECALCIFEROL (VITD3) 2,000 UNIT CAP/TAB PO SCH ×2 (10:00→11:14)
[2021-12-26] MEDS: ZINC SULFATE 220mg CAP or TAB PO SCH ×2 (11:13→11:41)
[2021-12-26] MEDS: levoFLOXacin 750MG 150 ML IV SCH (11:13)
[2021-12-26] MEDS: FOLIC ACID 1 MG in D5W 5% 50 ML INJ SCH (11:13)
[2021-12-26] MEDS: PANTOPRAZOLE 40 MG/10 ML VIAL INJ IV SCH ×2 (11:13→21:30)
[2021-12-26] MEDS: DexAMETHasone SOD PHOS 10MG/1ML VIAL INJ IV SCH (11:13)
[2021-12-26] MEDS: ASCORBIC ACID 1,000 MG TAB PO SCH ×2 (11:14→11:41)
[2021-12-26 12:04] LABS: Magnesium 3.2 mg/dL (1.6-2.6); Potassium 3.7 mmol/L (3.5-5.1)
[2021-12-26 12:08] LABS: BUN/Creatinine Ratio 43.4; Bilirubin, Total 0.5 mg/dL (0.2-1.0); Phosphorus 2.2 mg/dL (2.5-4.90); Pre Albumin 28.2 mg/dL (20.0-40.0); Total Protein 5.4 g/dL (6.4-8.2)
[2021-12-26 13:00] VITALS: BP 111/58
[2021-12-26] MEDS ORDERED: POTASSIUM PHOSP 22MEQ(15MMOLE) in NS 100 ML IV ONE (13:00)
[2021-12-26 17:00] VITALS: BP 107/53
[2021-12-26] MEDS ORDERED: PPN PER PHARMACY IV NR ×6 (20:00)
[2021-12-26 21:35] VITALS: BP 105/60
[2021-12-27 04:57] VITALS: BP 112/63
[2021-12-27] MEDS: ACCU-CHEK COMFORT CURVE STRIP VI SCH ×4 (05:24→23:48)
[2021-12-27] MEDS: InsuLIN REG 1unit/0.01ml Soln (100units/ml) SC SCH ×4 (05:27→23:48)
[2021-12-27] MEDS: SODIUM CHLOR 0.9% PF (SALINE LOCK) 10ML VIAL/SYR IV SCH ×3 (05:28→23:46)
[2021-12-27] MEDS: SUCRALFATE 1 GM/10 ML ORAL SUSP PO SCH ×4 (06:35→22:00)
[2021-12-27 07:16] LABS: Calcium 7.9 mg/dL (8.5-10.1); Magnesium 2.5 mg/dL (1.6-2.6); Potassium 3.8 mmol/L (3.5-5.1)
[2021-12-27 07:18] LABS: BUN/Creatinine Ratio 45.6
[2021-12-27 07:20] LABS: Bilirubin, Total 0.6 mg/dL (0.2-1.0); Phosphorus 2.6 mg/dL (2.5-4.90); Total Protein 5.6 g/dL (6.4-8.2)
[2021-12-27 09:00] VITALS: BP 111/62
[2021-12-27] MEDS: D5W 5% 1,000 ML IV SCH ×2 (09:15→22:35)
[2021-12-27] MEDS: DexAMETHasone SOD PHOS 10MG/1ML VIAL INJ IV SCH (09:26)
[2021-12-27] MEDS: levoFLOXacin 750MG 150 ML IV SCH (09:26)
[2021-12-27] MEDS: ZINC SULFATE 220mg CAP or TAB PO SCH ×2 (09:27→10:00)
[2021-12-27] MEDS: CHOLECALCIFEROL (VITD3) 2,000 UNIT CAP/TAB PO SCH ×2 (09:27→10:00)
[2021-12-27] MEDS: PANTOPRAZOLE 40 MG/10 ML VIAL INJ IV SCH ×2 (09:27→23:46)
[2021-12-27] MEDS: ASCORBIC ACID 1,000 MG TAB PO SCH ×2 (09:27→10:00)
[2021-12-27] MEDS: FOLIC ACID 1 MG in D5W 5% 50 ML INJ SCH (09:30)
[2021-12-27 13:00] VITALS: BP 114/61
[2021-12-27 17:00] VITALS: BP 110/52
[2021-12-27] MEDS ORDERED: PPN PER PHARMACY IV NR ×7 (20:00)
[2021-12-27 21:21] VITALS: BP 108/57
[2021-12-28 05:00] VITALS: BP 110/69
[2021-12-28] MEDS: InsuLIN REG 1unit/0.01ml Soln (100units/ml) SC SCH ×4 (06:00→23:57)
[2021-12-28] MEDS: ACCU-CHEK COMFORT CURVE STRIP VI SCH ×4 (06:26→23:57)
[2021-12-28] MEDS: SODIUM CHLOR 0.9% PF (SALINE LOCK) 10ML VIAL/SYR IV SCH ×3 (06:27→22:27)
[2021-12-28] MEDS: SUCRALFATE 1 GM/10 ML ORAL SUSP PO SCH ×4 (07:00→22:00)
[2021-12-28 07:07] LABS: Calcium 7.8 mg/dL (8.5-10.1); Magnesium 2.1 mg/dL (1.6-2.6); Potassium 3.5 mmol/L (3.5-5.1)
[2021-12-28 07:09] LABS: BUN/Creatinine Ratio 51.5
[2021-12-28 07:12] LABS: Bilirubin, Total 0.8 mg/dL (0.2-1.0); Phosphorus 2.3 mg/dL (2.5-4.90); Total Protein 5.6 g/dL (6.4-8.2)
[2021-12-28 09:00] VITALS: BP 107/91
[2021-12-28] MEDS: PANTOPRAZOLE 40 MG/10 ML VIAL INJ IV SCH ×2 (09:19→22:26)
[2021-12-28] MEDS: levoFLOXacin 750MG 150 ML IV SCH (09:19)
[2021-12-28] MEDS: DexAMETHasone SOD PHOS 10MG/1ML VIAL INJ IV SCH (09:19)
[2021-12-28] MEDS: CHOLECALCIFEROL (VITD3) 2,000 UNIT CAP/TAB PO SCH (09:34)
[2021-12-28] MEDS: ASCORBIC ACID 1,000 MG TAB PO SCH (09:34)
[2021-12-28] MEDS: ZINC SULFATE 220mg CAP or TAB PO SCH (09:34)
[2021-12-28] MEDS: FOLIC ACID 1 MG in D5W 5% 50 ML INJ SCH (11:01)
[2021-12-28] MEDS: D5W 5% 1,000 ML IV SCH (11:21)
[2021-12-28 13:00] VITALS: BP 120/59
[2021-12-28] MEDS ORDERED: PANT40TA2 PO (14:43)
[2021-12-28] MEDS ORDERED: SUCR1SUS10 PO (14:43)
[2021-12-28 17:00] VITALS: BP 100/61
[2021-12-28] MEDS ORDERED: PPN PER PHARMACY IV NR ×8 (20:00)
[2021-12-28 22:00] VITALS: BP 111/60
[2021-12-29 05:00] VITALS: BP 129/72
[2021-12-29] MEDS: ACCU-CHEK COMFORT CURVE STRIP VI SCH (06:00)
[2021-12-29] MEDS: InsuLIN REG 1unit/0.01ml Soln (100units/ml) SC SCH (06:00)
[2021-12-29] MEDS ORDERED: ACETAMINOPHEN 650 MG RECT SUPP PR PRN (06:45)
[2021-12-29] MEDS: SODIUM CHLOR 0.9% PF (SALINE LOCK) 10ML VIAL/SYR IV SCH ×3 (06:50→21:46)
[2021-12-29] MEDS: SUCRALFATE 1 GM/10 ML ORAL SUSP PO SCH ×4 (06:50→21:46)
[2021-12-29] MEDS: CHOLECALCIFEROL (VITD3) 2,000 UNIT CAP/TAB PO SCH (08:37)
[2021-12-29] MEDS: ZINC SULFATE 220mg CAP or TAB PO SCH (08:37)
[2021-12-29] MEDS: ASCORBIC ACID 1,000 MG TAB PO SCH (08:37)
[2021-12-29 09:00] VITALS: BP 109/62
[2021-12-29] MEDS ORDERED: SODIUM CHLORIDE 0.9% 1,000 ML IV ONE (09:00)
[2021-12-29] MEDS ORDERED: CLINDAMYCIN 600MG IV 50 ML IV SCH (09:00)
[2021-12-29 09:34] LABS: Basophils # (auto) 0.1 10 ^3/uL (0-0.2); Eosinophils # (auto) 0 10 ^3/uL (0-0.8); Eosinophils % (auto) 0.1 % (0.0-7.0); Hematocrit 40.9 % (41.0-53.0); Hemoglobin 13.8 g/dL (13.5-17.5); Lymphocytes # (auto) 0.3 10 ^3/uL (0.4-5.4); Lymphocytes % (auto) 3.2 % (10.0-50.0); Mean Corpuscular Hemoglobin 28.6 pg (28.0-32.0); Mean Corpuscular Hgb Conc. 33.8 g/dL (32.0-36.0); Mean Corpuscular Volume 84.4 fL (80.0-100.0); Monocytes # (auto) 0.2 10 ^3/uL (0-1.3); Monocytes % (auto) 2.2 % (0.0-12.0); Neutrophils % (auto) 93.5 % (37.0-80.0); Nucleated Red Blood Cells % 0.4 %; Red Blood Cells 4.85 10^6/uL (4.5-5.90); Red Cell Distribution Width 17.2 % (11.8-14.3); White Blood Cell 8.6 10^3/uL (4.4-10.8)
[2021-12-29 09:48] LABS: Calcium 8.2 mg/dL (8.5-10.1); Potassium 3.7 mmol/L (3.5-5.1)
[2021-12-29 09:54] LABS: Albumin 2.4 g/dL (3.4-5.0); BUN/Creatinine Ratio 34.9; Bilirubin, Total 1.4 mg/dL (0.2-1.0); Magnesium 2.7 mg/dL (1.6-2.6); Total Protein 6.1 g/dL (6.4-8.2)
[2021-12-29 10:01] LABS: Urine Bacteria FEW /hpf (None Seen); Urine Blood 3+ /uL (Negative); Urine Mucus FEW (None Seen); Urine Specific Gravity 1.022 (1.001-1.035); Urine WBC 130 /hpf (0 - 3)
[2021-12-29] MEDS: DexAMETHasone SOD PHOS 10MG/1ML VIAL INJ IV SCH (10:07)
[2021-12-29] MEDS: PANTOPRAZOLE 40 MG/10 ML VIAL INJ IV SCH ×2 (10:07→21:46)
[2021-12-29] MEDS: levoFLOXacin 500MG 100 ML IV SCH (10:08)
[2021-12-29] MEDS: FOLIC ACID 1 MG in D5W 5% 50 ML INJ SCH (12:00)
[2021-12-29 13:00] VITALS: BP 138/70
[2021-12-29 17:00] VITALS: BP 100/58
[2021-12-29] MEDS: CLINDAMYCIN 600MG IV 50 ML IV SCH ×2 (18:29→21:46)
[2021-12-29 20:50] VITALS: BP 90/57
[2021-12-30 04:56] VITALS: BP 107/61
[2021-12-30] MEDS: CLINDAMYCIN 600MG IV 50 ML IV SCH ×3 (06:06→21:47)
[2021-12-30] MEDS: SODIUM CHLOR 0.9% PF (SALINE LOCK) 10ML VIAL/SYR IV SCH ×3 (06:07→21:48)
[2021-12-30] MEDS: SUCRALFATE 1 GM/10 ML ORAL SUSP PO SCH ×4 (06:08→21:48)
[2021-12-30] MEDS: FOLIC ACID 1 MG in D5W 5% 50 ML INJ SCH (08:31)
[2021-12-30] MEDS: levoFLOXacin 500MG 100 ML IV SCH (08:31)
[2021-12-30] MEDS: PANTOPRAZOLE 40 MG/10 ML VIAL INJ IV SCH ×2 (08:32→21:47)
[2021-12-30] MEDS: ASCORBIC ACID 1,000 MG TAB PO SCH (08:32)
[2021-12-30] MEDS: DexAMETHasone SOD PHOS 10MG/1ML VIAL INJ IV SCH (08:32)
[2021-12-30] MEDS: CHOLECALCIFEROL (VITD3) 2,000 UNIT CAP/TAB PO SCH (08:32)
[2021-12-30] MEDS: ZINC SULFATE 220mg CAP or TAB PO SCH (08:32)
[2021-12-30 09:00] VITALS: BP 115/53
[2021-12-30 09:48] LABS: Basophils # (auto) 0 10 ^3/uL (0-0.2); Basophils % (auto) 0.5 % (0.0-2.0); Eosinophils # (auto) 0 10 ^3/uL (0-0.8); Eosinophils % (auto) 0.2 % (0.0-7.0); Hematocrit 33.8 % (41.0-53.0); Hemoglobin 11.3 g/dL (13.5-17.5); Lymphocytes # (auto) 0.8 10 ^3/uL (0.4-5.4); Lymphocytes % (auto) 8.7 % (10.0-50.0); Mean Corpuscular Hemoglobin 28.5 pg (28.0-32.0); Mean Corpuscular Hgb Conc. 33.4 g/dL (32.0-36.0); Mean Corpuscular Volume 85.4 fL (80.0-100.0); Monocytes # (auto) 0.5 10 ^3/uL (0-1.3); Monocytes % (auto) 5.3 % (0.0-12.0); Neutrophils # (auto) 8.4 10 ^3/uL (1.6-8.6); Neutrophils % (auto) 85.3 % (37.0-80.0); Nucleated Red Blood Cells % 0.2 %; Red Blood Cells 3.96 10^6/uL (4.5-5.90); Red Cell Distribution Width 16.9 % (11.8-14.3); White Blood Cell 9.8 10^3/uL (4.4-10.8)
[2021-12-30 10:06] LABS: BUN/Creatinine Ratio 37.6; Potassium 3.9 mmol/L (3.5-5.1)
[2021-12-30 13:00] VITALS: BP 109/56
[2021-12-30 17:00] VITALS: BP 105/64
[2021-12-30] MEDS ORDERED: ACETAMINOPHEN 325 MG TAB PO PRN (17:45)
[2021-12-30] MEDS ORDERED: HYDROcodone-ACET 5/325MG TAB PO PRN (17:45)
[2021-12-30] MEDS ORDERED: ACETAMINOPHEN 650 MG RECT SUPP PR PRN (18:00)
[2021-12-30 22:00] VITALS: BP 104/70
[2021-12-31 05:00] VITALS: BP 115/67
[2021-12-31 05:57] LABS: Basophils # (auto) 0 10 ^3/uL (0-0.2); Basophils % (auto) 0.2 % (0.0-2.0); Eosinophils # (auto) 0 10 ^3/uL (0-0.8); Eosinophils % (auto) 0.1 % (0.0-7.0); Hematocrit 32.4 % (41.0-53.0); Hemoglobin 10.8 g/dL (13.5-17.5); Lymphocytes # (auto) 0.5 10 ^3/uL (0.4-5.4); Mean Corpuscular Hemoglobin 28.3 pg (28.0-32.0); Mean Corpuscular Hgb Conc. 33.3 g/dL (32.0-36.0); Mean Corpuscular Volume 85.1 fL (80.0-100.0); Monocytes # (auto) 0.3 10 ^3/uL (0-1.3); Monocytes % (auto) 3.9 % (0.0-12.0); Neutrophils # (auto) 6.4 10 ^3/uL (1.6-8.6); Neutrophils % (auto) 88.8 % (37.0-80.0); Nucleated Red Blood Cells % 0.3 %; Red Blood Cells 3.81 10^6/uL (4.5-5.90); Red Cell Distribution Width 17.3 % (11.8-14.3); White Blood Cell 7.2 10^3/uL (4.4-10.8)
[2021-12-31 06:07] LABS: Calcium 8.2 mg/dL (8.5-10.1); Potassium 4.1 mmol/L (3.5-5.1)
[2021-12-31] MEDS: CLINDAMYCIN 600MG IV 50 ML IV SCH ×3 (06:11→21:51)
[2021-12-31] MEDS: SODIUM CHLOR 0.9% PF (SALINE LOCK) 10ML VIAL/SYR IV SCH ×3 (06:11→22:11)
[2021-12-31] MEDS: SUCRALFATE 1 GM/10 ML ORAL SUSP PO SCH ×4 (06:25→21:52)
[2021-12-31 08:40] VITALS: BP 106/88
[2021-12-31] MEDS: PANTOPRAZOLE 40 MG/10 ML VIAL INJ IV SCH ×2 (08:55→21:51)
[2021-12-31] MEDS: DexAMETHasone SOD PHOS 10MG/1ML VIAL INJ IV SCH (08:55)
[2021-12-31] MEDS: FOLIC ACID 1 MG in D5W 5% 50 ML INJ SCH (08:58)
[2021-12-31] MEDS: ASCORBIC ACID 1,000 MG TAB PO SCH (08:59)
[2021-12-31] MEDS: CHOLECALCIFEROL (VITD3) 2,000 UNIT CAP/TAB PO SCH (09:11)
[2021-12-31] MEDS: ZINC SULFATE 220mg CAP or TAB PO SCH (09:11)
[2021-12-31] MEDS: levoFLOXacin 500MG 100 ML IV SCH (10:56)
[2021-12-31 13:00] VITALS: BP 106/65
[2021-12-31 17:00] VITALS: BP 128/66
[2021-12-31 22:14] VITALS: BP 118/61
[2022-01-01 05:00] VITALS: BP 122/89
[2022-01-01 06:42] LABS: Basophils # (auto) 0 10 ^3/uL (0-0.2); Basophils % (auto) 0.3 % (0.0-2.0); Eosinophils # (auto) 0 10 ^3/uL (0-0.8); Eosinophils % (auto) 0.3 % (0.0-7.0); Hematocrit 33.4 % (41.0-53.0); Hemoglobin 11.1 g/dL (13.5-17.5); Lymphocytes # (auto) 0.9 10 ^3/uL (0.4-5.4); Lymphocytes % (auto) 14.6 % (10.0-50.0); Mean Corpuscular Hemoglobin 28.4 pg (28.0-32.0); Mean Corpuscular Hgb Conc. 33.1 g/dL (32.0-36.0); Mean Corpuscular Volume 85.8 fL (80.0-100.0); Monocytes # (auto) 0.4 10 ^3/uL (0-1.3); Monocytes % (auto) 5.6 % (0.0-12.0); Neutrophils # (auto) 5.1 10 ^3/uL (1.6-8.6); Neutrophils % (auto) 79.2 % (37.0-80.0); Nucleated Red Blood Cells % 0.3 %; Red Cell Distribution Width 17.8 % (11.8-14.3); White Blood Cell 6.4 10^3/uL (4.4-10.8)
[2022-01-01 06:48] LABS: BUN/Creatinine Ratio 31.3; Calcium 8.2 mg/dL (8.5-10.1); Potassium 3.7 mmol/L (3.5-5.1)
[2022-01-01] MEDS: CLINDAMYCIN 600MG IV 50 ML IV SCH ×3 (06:51→22:10)
[2022-01-01] MEDS: SODIUM CHLOR 0.9% PF (SALINE LOCK) 10ML VIAL/SYR IV SCH ×3 (06:51→22:10)
[2022-01-01] MEDS: SUCRALFATE 1 GM/10 ML ORAL SUSP PO SCH ×4 (06:57→22:00)
[2022-01-01 09:00] VITALS: BP 113/67
[2022-01-01] MEDS: ASCORBIC ACID 1,000 MG TAB PO SCH (10:00)
[2022-01-01] MEDS: ZINC SULFATE 220mg CAP or TAB PO SCH (10:00)
[2022-01-01] MEDS: PANTOPRAZOLE 40 MG/10 ML VIAL INJ IV SCH ×2 (10:02→22:10)
[2022-01-01] MEDS: DexAMETHasone SOD PHOS 10MG/1ML VIAL INJ IV SCH (10:02)
[2022-01-01] MEDS: levoFLOXacin 500MG 100 ML IV SCH (10:02)
[2022-01-01] MEDS: CHOLECALCIFEROL (VITD3) 2,000 UNIT CAP/TAB PO SCH (10:03)
[2022-01-01] MEDS: FOLIC ACID 1 MG in D5W 5% 50 ML INJ SCH (10:54)
[2022-01-01 12:58] VITALS: BP 120/5
[2022-01-01] MEDS ORDERED: CLIN300C8 PO (13:43)
[2022-01-01] MEDS ORDERED: LEVO500T31 PO (13:43)
[2022-01-01 17:24] VITALS: BP 127/53
[2022-01-01 22:00] VITALS: BP 108/62
[2022-01-02 05:00] VITALS: BP 119/61
[2022-01-02] MEDS: SODIUM CHLOR 0.9% PF (SALINE LOCK) 10ML VIAL/SYR IV SCH ×3 (06:31→22:25)
[2022-01-02] MEDS: CLINDAMYCIN 600MG IV 50 ML IV SCH ×3 (06:31→22:25)
[2022-01-02] MEDS: SUCRALFATE 1 GM/10 ML ORAL SUSP PO SCH ×4 (06:32→22:25)
[2022-01-02] MEDS: ASCORBIC ACID 1,000 MG TAB PO SCH (10:19)
[2022-01-02] MEDS: CHOLECALCIFEROL (VITD3) 2,000 UNIT CAP/TAB PO SCH (10:19)
[2022-01-02] MEDS: levoFLOXacin 500MG 100 ML IV SCH (10:19)
[2022-01-02] MEDS: ZINC SULFATE 220mg CAP or TAB PO SCH (10:19)
[2022-01-02] MEDS: DexAMETHasone SOD PHOS 10MG/1ML VIAL INJ IV SCH (10:19)
[2022-01-02] MEDS: PANTOPRAZOLE 40 MG/10 ML VIAL INJ IV SCH ×2 (10:19→22:25)
[2022-01-02] MEDS: FOLIC ACID 1 MG in D5W 5% 50 ML INJ SCH (14:27)
[2022-01-02 17:00] VITALS: BP 107/70
[2022-01-02] MEDS ORDERED: VANCOMYCIN PER PHARMACY 0 MG IV SCH (17:45)
[2022-01-02] MEDS ORDERED: VANCOMYCIN 1GM/250ML 250 ML IV ONE (18:00)
[2022-01-02] MEDS ORDERED: PENICILLOYL POLYLYSINE 0.25 ML INJ SCRATCHTES ONE (19:45)
[2022-01-02] MEDS ORDERED: PENICILLOYL POLYLYSINE 0.25 ML INJ ID ONE ×2 (19:45)
[2022-01-02 22:00] VITALS: BP 102/53
[2022-01-03 05:00] VITALS: BP 114/67
[2022-01-03] MEDS: CLINDAMYCIN 600MG IV 50 ML IV SCH ×3 (06:03→21:52)
[2022-01-03] MEDS: SODIUM CHLOR 0.9% PF (SALINE LOCK) 10ML VIAL/SYR IV SCH ×3 (06:03→21:52)
[2022-01-03 06:56] LABS: Basophils # (auto) 0 10 ^3/uL (0-0.2); Basophils % (auto) 0.1 % (0.0-2.0); Eosinophils # (auto) 0 10 ^3/uL (0-0.8); Eosinophils % (auto) 0.5 % (0.0-7.0); Hemoglobin 11.5 g/dL (13.5-17.5); Lymphocytes # (auto) 0.9 10 ^3/uL (0.4-5.4); Lymphocytes % (auto) 11.4 % (10.0-50.0); Mean Corpuscular Hemoglobin 28.1 pg (28.0-32.0); Mean Corpuscular Hgb Conc. 32.9 g/dL (32.0-36.0); Mean Corpuscular Volume 85.2 fL (80.0-100.0); Monocytes # (auto) 0.4 10 ^3/uL (0-1.3); Monocytes % (auto) 4.8 % (0.0-12.0); Neutrophils # (auto) 6.2 10 ^3/uL (1.6-8.6); Neutrophils % (auto) 83.2 % (37.0-80.0); Red Blood Cells 4.11 10^6/uL (4.5-5.90); Red Cell Distribution Width 18.5 % (11.8-14.3); White Blood Cell 7.5 10^3/uL (4.4-10.8)
[2022-01-03] MEDS: SUCRALFATE 1 GM/10 ML ORAL SUSP PO SCH ×4 (06:57→21:52)
[2022-01-03 09:00] VITALS: BP 104/67
[2022-01-03] MEDS: VANCOMYCIN 1GM/250ML 250 ML IV SCH ×2 (09:12→22:51)
[2022-01-03] MEDS: FOLIC ACID 1 MG in D5W 5% 50 ML INJ SCH (10:17)
[2022-01-03] MEDS: ASCORBIC ACID 1,000 MG TAB PO SCH (10:45)
[2022-01-03] MEDS: CHOLECALCIFEROL (VITD3) 2,000 UNIT CAP/TAB PO SCH (10:45)
[2022-01-03] MEDS: DexAMETHasone SOD PHOS 10MG/1ML VIAL INJ IV SCH (10:45)
[2022-01-03] MEDS ORDERED: AMOXICILLIN TRIHYDRATE 250 MG CAP PO ONE (10:45)
[2022-01-03] MEDS: ZINC SULFATE 220mg CAP or TAB PO SCH (10:45)
[2022-01-03] MEDS: PANTOPRAZOLE 40 MG/10 ML VIAL INJ IV SCH ×2 (10:46→21:52)
[2022-01-03 12:31] VITALS: BP 103/53
[2022-01-03] MEDS ORDERED: SODIUM CHLOR 0.9% PF (SALINE LOCK) 10ML VIAL/SYR SCRATCHTES ONE (15:00)
[2022-01-03] MEDS ORDERED: SODIUM CHLOR 0.9% PF (SALINE LOCK) 10ML VIAL/SYR ID ONE (15:00)
[2022-01-03] MEDS ORDERED: PENICILLIN G POTASSIUM 1,000 UNITS in SODIUM CHL 0.9% 0.1 ML ID ONE ×4 (15:00)
[2022-01-03] MEDS ORDERED: PENICILLIN G POTASSIUM 1,000 UNITS in SODIUM CHL 0.9% 0.1 ML SCRATCHTES ONE (15:00)
[2022-01-03] MEDS ORDERED: HISTAMINE PHOS 1mg/ml 5ML SCRATCH TEST SCRATCHTES ONE (15:00)
[2022-01-03] MEDS ORDERED: IOHEXOL 300 MG/ML 100ML BOTTLE IJ ONE (16:14)
[2022-01-03 17:00] VITALS: BP 102/56
[2022-01-03 22:00] VITALS: BP 103/60
[2022-01-04 05:00] VITALS: BP 109/59
[2022-01-04] MEDS: SODIUM CHLOR 0.9% PF (SALINE LOCK) 10ML VIAL/SYR IV SCH ×3 (06:00→21:12)
[2022-01-04 06:30] LABS: Basophils # (auto) 0 10 ^3/uL (0-0.2); Basophils % (auto) 0.3 % (0.0-2.0); Eosinophils # (auto) 0 10 ^3/uL (0-0.8); Eosinophils % (auto) 0.7 % (0.0-7.0); Hematocrit 32.9 % (41.0-53.0); Lymphocytes # (auto) 0.8 10 ^3/uL (0.4-5.4); Lymphocytes % (auto) 10.8 % (10.0-50.0); Mean Corpuscular Hemoglobin 28.5 pg (28.0-32.0); Mean Corpuscular Hgb Conc. 33.3 g/dL (32.0-36.0); Mean Corpuscular Volume 85.5 fL (80.0-100.0); Monocytes # (auto) 0.4 10 ^3/uL (0-1.3); Neutrophils % (auto) 83.2 % (37.0-80.0); Nucleated Red Blood Cells % 0.1 %; Red Blood Cells 3.84 10^6/uL (4.5-5.90); Red Cell Distribution Width 18.6 % (11.8-14.3); White Blood Cell 7.2 10^3/uL (4.4-10.8)
[2022-01-04] MEDS: SUCRALFATE 1 GM/10 ML ORAL SUSP PO SCH ×4 (06:35→21:11)
[2022-01-04] MEDS: CLINDAMYCIN 600MG IV 50 ML IV SCH ×3 (06:35→21:12)
[2022-01-04 06:43] LABS: BUN/Creatinine Ratio 19.8; Potassium 3.6 mmol/L (3.5-5.1)
[2022-01-04 09:00] VITALS: BP 118/59
[2022-01-04] MEDS: PANTOPRAZOLE 40 MG TAB PO SCH ×2 (09:30→21:12)
[2022-01-04] MEDS: VANCOMYCIN 1GM/250ML 250 ML IV SCH (11:50)
[2022-01-04 13:00] VITALS: BP 101/58
[2022-01-04 16:50] VITALS: BP 100/61
[2022-01-04 22:00] VITALS: BP 110/63
[2022-01-05] MEDS: VANCOMYCIN 1GM/250ML 250 ML IV SCH ×2 (04:58→16:50)
[2022-01-05 05:00] VITALS: BP 100/60
[2022-01-05] MEDS: SODIUM CHLOR 0.9% PF (SALINE LOCK) 10ML VIAL/SYR IV SCH ×3 (06:12→21:59)
[2022-01-05] MEDS: CLINDAMYCIN 600MG IV 50 ML IV SCH ×3 (06:12→21:58)
[2022-01-05] MEDS: SUCRALFATE 1 GM/10 ML ORAL SUSP PO SCH ×4 (06:29→21:59)
[2022-01-05 07:56] LABS: Basophils # (auto) 0 10 ^3/uL (0-0.2); Basophils % (auto) 0.3 % (0.0-2.0); Eosinophils # (auto) 0.1 10 ^3/uL (0-0.8); Eosinophils % (auto) 1.6 % (0.0-7.0); Hematocrit 30.4 % (41.0-53.0); Hemoglobin 10.1 g/dL (13.5-17.5); Lymphocytes # (auto) 0.7 10 ^3/uL (0.4-5.4); Lymphocytes % (auto) 10.7 % (10.0-50.0); Mean Corpuscular Hemoglobin 28.5 pg (28.0-32.0); Mean Corpuscular Hgb Conc. 33.2 g/dL (32.0-36.0); Monocytes # (auto) 0.4 10 ^3/uL (0-1.3); Monocytes % (auto) 5.3 % (0.0-12.0); Neutrophils # (auto) 5.5 10 ^3/uL (1.6-8.6); Neutrophils % (auto) 82.1 % (37.0-80.0); Nucleated Red Blood Cells % 0.1 %; Red Blood Cells 3.53 10^6/uL (4.5-5.90); Red Cell Distribution Width 17.9 % (11.8-14.3); White Blood Cell 6.7 10^3/uL (4.4-10.8)
[2022-01-05 08:08] LABS: Potassium 3.5 mmol/L (3.5-5.1)
[2022-01-05 08:19] LABS: BUN/Creatinine Ratio 20.6; Calcium 8.2 mg/dL (8.5-10.1)
[2022-01-05 08:30] VITALS: BP 98/60
[2022-01-05] MEDS: PANTOPRAZOLE 40 MG TAB PO SCH ×2 (10:50→21:59)
[2022-01-05 12:30] VITALS: BP 99/58
[2022-01-05 17:00] VITALS: BP 98/54
[2022-01-05 22:00] VITALS: BP 104/56
[2022-01-06] MEDS: SODIUM CHLOR 0.9% PF (SALINE LOCK) 10ML VIAL/SYR IV SCH ×3 (04:58→22:03)
[2022-01-06] MEDS: VANCOMYCIN 1GM/250ML 250 ML IV SCH ×2 (04:58→20:31)
[2022-01-06 05:00] VITALS: BP 98/56
[2022-01-06] MEDS: CLINDAMYCIN 600MG IV 50 ML IV SCH ×3 (06:14→22:03)
[2022-01-06] MEDS: SUCRALFATE 1 GM/10 ML ORAL SUSP PO SCH ×4 (06:14→22:04)
[2022-01-06 06:55] LABS: Basophils # (auto) 0 10 ^3/uL (0-0.2); Basophils % (auto) 0.7 % (0.0-2.0); Eosinophils # (auto) 0.1 10 ^3/uL (0-0.8); Eosinophils % (auto) 1.5 % (0.0-7.0); Hematocrit 29.2 % (41.0-53.0); Hemoglobin 9.7 g/dL (13.5-17.5); Lymphocytes # (auto) 0.5 10 ^3/uL (0.4-5.4); Lymphocytes % (auto) 10.9 % (10.0-50.0); Mean Corpuscular Hemoglobin 28.8 pg (28.0-32.0); Mean Corpuscular Hgb Conc. 33.3 g/dL (32.0-36.0); Mean Corpuscular Volume 86.3 fL (80.0-100.0); Monocytes # (auto) 0.3 10 ^3/uL (0-1.3); Monocytes % (auto) 6.5 % (0.0-12.0); Neutrophils # (auto) 3.7 10 ^3/uL (1.6-8.6); Neutrophils % (auto) 80.4 % (37.0-80.0); Nucleated Red Blood Cells % 0.1 %; Red Blood Cells 3.39 10^6/uL (4.5-5.90); Red Cell Distribution Width 17.7 % (11.8-14.3); White Blood Cell 4.6 10^3/uL (4.4-10.8)
[2022-01-06 07:16] LABS: Potassium 3.6 mmol/L (3.5-5.1)
[2022-01-06 07:20] LABS: BUN/Creatinine Ratio 23.3
[2022-01-06 09:00] VITALS: BP 94/62
[2022-01-06] MEDS: PANTOPRAZOLE 40 MG TAB PO SCH ×2 (10:39→22:04)
[2022-01-06 13:00] VITALS: BP 101/62
[2022-01-06 17:00] VITALS: BP 107/58
[2022-01-06 20:00] VITALS: BP 142/68
[2022-01-06 22:00] VITALS: BP 95/61
[2022-01-06 22:52] LABS: INR 1.27 (0.9-1.15); Partial Thromboplastin Time 29.3 sec (23.6-33.0)
[2022-01-07 05:00] VITALS: BP 95/66
[2022-01-07] MEDS: CLINDAMYCIN 600MG IV 50 ML IV SCH ×3 (06:47→21:46)
[2022-01-07] MEDS: SODIUM CHLOR 0.9% PF (SALINE LOCK) 10ML VIAL/SYR IV SCH ×3 (06:47→21:46)
[2022-01-07] MEDS: SUCRALFATE 1 GM/10 ML ORAL SUSP PO SCH ×4 (07:00→21:46)
[2022-01-07 08:00] VITALS: BP_SYST 103; BP_SYST 142; BP_DIAS 54; BP_DIAS 68
[2022-01-07] MEDS: VANCOMYCIN 1GM/250ML 250 ML IV SCH ×2 (08:46→23:57)
[2022-01-07] MEDS: PANTOPRAZOLE 40 MG TAB PO SCH ×2 (10:12→21:46)
[2022-01-07 12:00] VITALS: BP 110/59
[2022-01-07 16:00] VITALS: BP 101/65
[2022-01-07 20:00] VITALS: BP 140/70
[2022-01-07 22:00] VITALS: BP 112/71
[2022-01-08 05:00] VITALS: BP 104/66
[2022-01-08] MEDS: CLINDAMYCIN 600MG IV 50 ML IV SCH ×2 (05:25→13:29)
[2022-01-08] MEDS: SUCRALFATE 1 GM/10 ML ORAL SUSP PO SCH ×4 (06:03→21:08)
[2022-01-08 08:45] VITALS: BP 119/72
[2022-01-08] MEDS: PANTOPRAZOLE 40 MG TAB PO SCH ×2 (10:04→21:08)
[2022-01-08] MEDS: SODIUM CHLOR 0.9% PF (SALINE LOCK) 10ML VIAL/SYR IV SCH ×2 (10:04→21:08)
[2022-01-08 12:30] VITALS: BP 115/68
[2022-01-08 16:57] VITALS: BP 113/68
[2022-01-08 20:00] VITALS: BP 140/70
[2022-01-08] MEDS: MEROPENEM 1GM IVPB 100 ML IV SCH (21:07)
[2022-01-08 22:00] VITALS: BP 118/59
[2022-01-09 05:00] VITALS: BP 114/68
[2022-01-09] MEDS: MEROPENEM 1GM IVPB 100 ML IV SCH ×2 (06:18→16:00)
[2022-01-09] MEDS: SUCRALFATE 1 GM/10 ML ORAL SUSP PO SCH ×4 (06:19→22:00)
[2022-01-09 08:50] VITALS: BP 106/65
[2022-01-09] MEDS: SODIUM CHLOR 0.9% PF (SALINE LOCK) 10ML VIAL/SYR IV SCH ×2 (10:14→22:48)
[2022-01-09] MEDS: PANTOPRAZOLE 40 MG TAB PO SCH ×2 (10:14→22:00)
[2022-01-09 12:50] VITALS: BP 118/65
[2022-01-09] MEDS ORDERED: VANCOMYCIN 500 MG in D5W 5% 100 ML IV ONE (14:00)
[2022-01-09 15:01] LABS: Basophils # (auto) 0 10 ^3/uL (0-0.2); Basophils % (auto) 0.4 % (0.0-2.0); Eosinophils # (auto) 0.1 10 ^3/uL (0-0.8); Hematocrit 32.8 % (41.0-53.0); Hemoglobin 10.4 g/dL (13.5-17.5); Lymphocytes # (auto) 0.8 10 ^3/uL (0.4-5.4); Lymphocytes % (auto) 17.2 % (10.0-50.0); Mean Corpuscular Hemoglobin 27.7 pg (28.0-32.0); Mean Corpuscular Hgb Conc. 31.8 g/dL (32.0-36.0); Mean Corpuscular Volume 86.9 fL (80.0-100.0); Monocytes # (auto) 0.2 10 ^3/uL (0-1.3); Neutrophils # (auto) 3.7 10 ^3/uL (1.6-8.6); Neutrophils % (auto) 75.4 % (37.0-80.0); Nucleated Red Blood Cells % 0.1 %; Red Blood Cells 3.77 10^6/uL (4.5-5.90); Red Cell Distribution Width 17.9 % (11.8-14.3); White Blood Cell 4.9 10^3/uL (4.4-10.8)
[2022-01-09 15:13] LABS: BUN/Creatinine Ratio 17.1; Calcium 8.5 mg/dL (8.5-10.1); Potassium 3.5 mmol/L (3.5-5.1)
[2022-01-09 16:50] VITALS: BP 104/57
[2022-01-09 21:58] LABS: INR 1.22 (0.9-1.15); Partial Thromboplastin Time 27.9 sec (23.6-33.0)
[2022-01-09 22:00] VITALS: BP 100/69
[2022-01-09] MEDS: PIPERACILLIN-TAZOB 3.375GM 100 ML IV SCH (22:47)
[2022-01-10 05:00] VITALS: BP 116/79
[2022-01-10] MEDS: SUCRALFATE 1 GM/10 ML ORAL SUSP PO SCH ×4 (06:15→22:00)
[2022-01-10] MEDS: PIPERACILLIN-TAZOB 3.375GM 100 ML IV SCH ×3 (06:15→22:35)
[2022-01-10 09:00] VITALS: BP 95/60
[2022-01-10] MEDS: PANTOPRAZOLE 40 MG TAB PO SCH ×2 (09:33→22:00)
[2022-01-10] MEDS: SODIUM CHLOR 0.9% PF (SALINE LOCK) 10ML VIAL/SYR IV SCH ×2 (09:34→22:38)
[2022-01-10 12:56] VITALS: BP 95/59
[2022-01-10 16:41] VITALS: BP 102/58
[2022-01-10 22:00] VITALS: BP 103/53
[2022-01-11 05:00] VITALS: BP 118/76
[2022-01-11] MEDS: PIPERACILLIN-TAZOB 3.375GM 100 ML IV SCH ×3 (06:05→21:17)
[2022-01-11] MEDS: SUCRALFATE 1 GM/10 ML ORAL SUSP PO SCH ×4 (06:05→21:16)
[2022-01-11] MEDS: PANTOPRAZOLE 40 MG TAB PO SCH ×2 (10:00→21:16)
[2022-01-11] MEDS: SODIUM CHLOR 0.9% PF (SALINE LOCK) 10ML VIAL/SYR IV SCH ×2 (10:04→21:16)
[2022-01-11] MEDS ORDERED: ATROPINE SULF 1 MG/10ml SYR IV PRN (13:30)
[2022-01-11 13:49] VITALS: BP 116/76
[2022-01-11 22:00] VITALS: BP 105/66
[2022-01-12 05:00] VITALS: BP 125/64
[2022-01-12] MEDS: PIPERACILLIN-TAZOB 3.375GM 100 ML IV SCH ×3 (05:46→22:05)
[2022-01-12] MEDS: SUCRALFATE 1 GM/10 ML ORAL SUSP PO SCH ×4 (05:47→22:29)
[2022-01-12] MEDS: PANTOPRAZOLE 40 MG TAB PO SCH ×2 (09:06→22:06)
[2022-01-12 09:24] VITALS: BP 111/69
[2022-01-12] MEDS: SODIUM CHLOR 0.9% PF (SALINE LOCK) 10ML VIAL/SYR IV SCH ×2 (09:57→22:06)
[2022-01-12 13:00] VITALS: BP 112/70
[2022-01-12 17:31] VITALS: BP 101/67
[2022-01-12 22:00] VITALS: BP 105/69
[2022-01-13 05:00] VITALS: BP 113/69
[2022-01-13] MEDS: PIPERACILLIN-TAZOB 3.375GM 100 ML IV SCH ×2 (06:14→12:13)
[2022-01-13] MEDS: SUCRALFATE 1 GM/10 ML ORAL SUSP PO SCH ×4 (06:41→22:24)
[2022-01-13] MEDS: PANTOPRAZOLE 40 MG TAB PO SCH ×2 (09:10→22:24)
[2022-01-13] MEDS: SODIUM CHLOR 0.9% PF (SALINE LOCK) 10ML VIAL/SYR IV SCH ×2 (09:11→22:24)
[2022-01-13 10:18] VITALS: BP 106/72
[2022-01-13 13:58] VITALS: BP 93/67
[2022-01-13 17:01] VITALS: BP 107/57
[2022-01-13 21:51] VITALS: BP 102/67
[2022-01-14 04:53] VITALS: BP 114/66
[2022-01-14] MEDS: SUCRALFATE 1 GM/10 ML ORAL SUSP PO SCH ×4 (06:45→22:42)
[2022-01-14] MEDS: PANTOPRAZOLE 40 MG TAB PO SCH ×2 (08:35→22:42)
[2022-01-14 09:00] VITALS: BP 116/68
[2022-01-14] MEDS: SODIUM CHLOR 0.9% PF (SALINE LOCK) 10ML VIAL/SYR IV SCH ×2 (10:00→22:42)
[2022-01-14 12:21] VITALS: BP 102/68
[2022-01-14 22:00] VITALS: BP 123/73
[2022-01-15 05:00] VITALS: BP 119/67
[2022-01-15] MEDS: SUCRALFATE 1 GM/10 ML ORAL SUSP PO SCH ×3 (07:00→16:43)
[2022-01-15 09:00] VITALS: BP 93/41
[2022-01-15] MEDS: SODIUM CHLOR 0.9% PF (SALINE LOCK) 10ML VIAL/SYR IV SCH (09:14)
[2022-01-15] MEDS: PANTOPRAZOLE 40 MG TAB PO SCH (09:14)
[2022-01-15 13:00] VITALS: BP 122/53
[2022-01-15 16:48] VITALS: BP 97/59
== END 2022-01-15 19:28 | disposition home health service (06) | DRG 177 ==
LOC: EDBD 18:20 → ER 18:32 → TELE 12-10 08:48 → TELE-EAST 12-12 20:55 → TELE-E-ADS 12-14 07:00
PROVIDERS: ADMIT Internal Medicine; ATTEND Internal Medicine
PROC: 5A09457 Assistance with Respiratory Ventilation, 24-96 Consecutive Hours, Continuous Positive Airway Pressure (ICD-10-PCS; 2021-12-09)
PROC: XW033E5 Introduction of Remdesivir Anti-infective into Peripheral Vein, Percutaneous Approach, New Technology Group 5 (ICD-10-PCS; principal; 2021-12-10)
PROC: 05HF33Z Insertion of Infusion Device into Left Cephalic Vein, Percutaneous Approach (ICD-10-PCS; 2021-12-13)
PROC: B54NZZA Ultrasonography of Left Upper Extremity Veins, Guidance (ICD-10-PCS; 2021-12-13)
PROC: 05HB33Z Insertion of Infusion Device into Right Basilic Vein, Percutaneous Approach (ICD-10-PCS; 2021-12-23)
PROC: B54MZZA Ultrasonography of Right Upper Extremity Veins, Guidance (ICD-10-PCS; 2021-12-23)
DX: U07.1 COVID-19 (principal); J12.82 Pneumonia due to coronavirus disease 2019; A41.89 Other specified sepsis; G92.8 Other toxic encephalopathy; E43 Unspecified severe protein-calorie malnutrition; J96.21 Acute and chronic respiratory failure with hypoxia; G93.1 Anoxic brain damage, not elsewhere classified; E87.0 Hyperosmolality and hypernatremia; J98.11 Atelectasis; J44.1 Chronic obstructive pulmonary disease with (acute) exacerbation; Z66 Do not resuscitate; D89.839 Cytokine release syndrome, grade unspecified; F03.90 Unspecified dementia, unspecified severity, without behavioral disturbance, psychotic disturbance, mood disturbance, and anxiety; I65.29 Occlusion and stenosis of unspecified carotid artery; I77.1 Stricture of artery; I25.10 Atherosclerotic heart disease of native coronary artery without angina pectoris; D64.9 Anemia, unspecified; E66.9 Obesity, unspecified; E88.09 Other disorders of plasma-protein metabolism, not elsewhere classified; E87.6 Hypokalemia; R53.81 Other malaise; Z99.81 Dependence on supplemental oxygen; Z99.3 Dependence on wheelchair; Z68.31 Body mass index [BMI] 31.0-31.9, adult; Z74.01 Bed confinement status; I25.2 Old myocardial infarction; Z86.73 Personal history of transient ischemic attack (TIA), and cerebral infarction without residual deficits
CPT/HCPCS: 36415; 36569; 36600; 70450; 71045; 74177; 80048; 80053; 80061; 80202; 81001; 82040; 82306; 82565; 82607; 82728; 82746; 82805; 82962; 83605; 83615; 83735; 83880; 84100; 84443; 84478; 84484; 85007; 85025; 85027; 85379; 85610; 85730; 86141; 87040; 87077; 87081; 87086; 87088; 87186; 87426; 92507; 92610; 93005; 93306; 93970; 94640; 94660; 94760; 95819; 96365; 96366; 96368; 96375; 97163; 99291; C9113; G0378; J0696; J1100; J1815; J1956; J2185; J2543; J3490; J7060